=== PATIENT | female | born 2000 | race Caucasian/White ===

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

== ENCOUNTER 2018-02-09 17:06 | Emergency (ER) | payer OTHER ==
[2018-02-09 18:50] VITALS: BP 0/0
== END 2018-02-09 18:51 | disposition left against medical advice (07) ==
LOC: ED 17:06
DX: T14.8XXA Other injury of unspecified body region, initial encounter (principal); W54.0XXA Bitten by dog, initial encounter; Z53.21 Procedure and treatment not carried out due to patient leaving prior to being seen by health care provider

== ENCOUNTER 2018-02-25 13:30 | Emergency (ER) | payer OTHER ==
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
--- NOTE | 2018-02-25 15:54 | RAD ---
INDICATION: Left ankle pain COMPARISON: None. TECHNIQUE: 3 views of the left ankle were obtained. FINDINGS: The well corticated bones exhibit normal alignment. Joint spaces appear maintained. No fracture is seen. IMPRESSION: Normal ankle radiograph. If the patient's symptoms persist, follow-up imaging is recommended.
[2018-02-25 17:24] VITALS: BP 118/76
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
== END 2018-02-25 17:25 | disposition home or self-care (01) ==
LOC: ED 13:30
DX: S96.912A Strain of unspecified muscle and tendon at ankle and foot level, left foot, initial encounter (principal); S16.1XXA Strain of muscle, fascia and tendon at neck level, initial encounter; V49.49XA Driver injured in collision with other motor vehicles in traffic accident, initial encounter; Y92.9 Unspecified place or not applicable; F32.9 Major depressive disorder, single episode, unspecified; F41.9 Anxiety disorder, unspecified; F17.210 Nicotine dependence, cigarettes, uncomplicated; F20.9 Schizophrenia, unspecified; F43.10 Post-traumatic stress disorder, unspecified; R10.2 Pelvic and perineal pain
CPT/HCPCS: 72020; 72050; 72170; 99283

== ENCOUNTER 2019-02-24 12:55 | Emergency (ER) | payer OTHER ==
[2019-02-24 13:24] VITALS: BP 122/75
[2019-02-24] MEDS ORDERED: Ondansetron ODT TAB* 4 MG PO ONE (14:02)
--- NOTE | 2019-02-24 14:08 | UC ---
Nausea/Vomiting/Diarrhea HPI - HPI Summary HPI Summary: 18-year-old female comes in with a chief complaint of nausea vomiting. Started last night. She's also had a sore throat. She's had chills. No shortness of breath. She did have an episode of diarrhea during the night but nothing this morning. Denies any abdominal pain. She is on her menses now she denies any concern of an STI. No burning with urination. No flank pain. - History of Current Complaint Chief Complaint: UCHeadache Stated Complaint: DELGADO,NAUSEA,CHILLS Time Seen by Provider: 02/24/19 13:54 Hx Last Menstrual Period: 02/23/19 Pain Intensity: 0 - Allergies/Home Medications Allergies/Adverse Reactions: Allergies Allergy/AdvReac Type Severity Reaction Status Date / Time bee venom protein (honey bee) Allergy Hives Verified 02/24/19 13:23 PMH/Surg Hx/FS Hx/Imm Hx Previously Healthy: Yes - REPORTS HX OF ANEMIA Other History Of: Negative For: Anticoagulant Therapy - Surgical History Surgical History: None - Family History Known Family History: Positive: None, Other - depression Negative: Cardiac Disease, Hypertension, Diabetes - Social History Alcohol Use: Occasionally Substance Use Type: Marijuana Substance Use Comment - Amount & Last Used: frequent Smoking Status (MU): Current Some Day Smoker Type: eCigarettes Amount Used/How Often: once every couple months Have You Smoked in the Last Year: Yes - patient smoked approximately half a pack of cigarette within 30 days Household Exposure Type: Cigarettes - Immunization History Most Recent Influenza Vaccination: unk Most Recent Pneumonia Vaccination: none Review of Systems All Other Systems Reviewed And Are Negative: Yes Constitutional: Positive: Fatigue Skin: Positive: Negative Eyes: Positive: Negative ENT: Positive: Sore Throat Respiratory: Positive: Negative Cardiovascular: Positive: Negative Gastrointestinal: Positive: Vomiting, Diarrhea, Nausea Genitourinary: Positive: Negative Motor: Positive: Negative Neurovascular: Positive: Negative Musculoskeletal: Positive: Negative Neurological: Positive: Headache - LAST PM HAD DELGADO;NO DELGADO NOW Psychological: Positive: Negative Is Patient Immunocompromised?: No Physical Exam Triage Information Reviewed: Yes Appearance: Well-Appearing, No Pain Distress, Well-Nourished Vital Signs: Initial Vital Signs Temp 98.1 F 02/24/19 13:15 Pulse 82 02/24/19 13:15 Resp 18 02/24/19 13:15 BP 122/75 02/24/19 13:15 Pulse Ox 99 02/24/19 13:15 Vital Signs Reviewed: Yes Eye Exam: Normal Eyes: Positive: Conjunctiva Clear ENT: Positive: Tonsillar swelling - 2+ B/L. NO PERITONSILLAR ABSCESS Neck: Positive: Supple Respiratory: Positive: Lungs clear, Normal breath sounds, No respiratory distress Cardiovascular: Positive: RRR Abdominal Exam: Normal Abdomen Description: Positive: Soft. Negative: CVA Tenderness (R), CVA Tenderness (L) Musculoskeletal: Positive: Strength Intact, ROM Intact Neurological Exam: Normal Neurological: Positive: Alert, Muscle Tone Normal Psychological: Positive: Age Appropriate Behavior Skin Exam: Normal Naus/Vom/Diarrhea Course/Dx - Course Course Of Treatment: STREP NEGATIVE. NO ABDOMINAL PAIN. NO FEVER. WILL TREAT SYMPTOMS; REEVAL IF WORSE. - Differential Dx/Diagnosis Provider Diagnosis: Nausea vomiting and diarrhea, Sore throat Condition At Discharge: Stable Discharge - Sign-Out/Discharge Documenting (check all that apply): Patient Departure All imaging exams completed and their final reports reviewed: No Studies - Discharge Plan Condition: Stable Disposition: HOME Prescriptions: Ondansetron ODT TAB* [Zofran 4 MG Odt TAB*] 4 mg PO Q6H PRN #10 tab.odt PRN Reason: Nausea Patient Education Materials: Acute Nausea and Vomiting (ED), Acute Diarrhea (ED ) Forms: *Work Release Referrals: [facility] [place] [facility] [Outside] Additional Instructions: FOLLOW UP WITH YOUR DOCTOR IF NOT COMPLETELY IMPROVED. GET RECHECKED SOONER IF YOUR CONDITION WORSENS OR ANY QUESTIONS OR CONCERNS. - Billing Disposition and Condition Condition: STABLE Disposition: Home
== END 2019-02-24 14:38 | disposition home or self-care (01) ==
LOC: UCCORT 12:55
DX: R11.2 Nausea with vomiting, unspecified (principal); R19.7 Diarrhea, unspecified; J02.9 Acute pharyngitis, unspecified; F17.210 Nicotine dependence, cigarettes, uncomplicated
CPT/HCPCS: 87651; 99212; A9270-GY; G0463

== ENCOUNTER 2020-08-18 17:54 | Inpatient (IN) ==
[2020-08-18] MEDS ORDERED: Buffered Lidocaine 1% SYRIN 1 ml INTRADERM ONE (19:16)
[2020-08-18] MEDS ORDERED: Dinoprostone 10 MG VAG.SUPP VAGINAL ONE (19:16)
[2020-08-18] MEDS ORDERED: Lactated Ringers 1000 ml BAG 1,000 ML IV ONE (19:16)
[2020-08-18] MEDS ORDERED: hydrOXYzine IM 50 MG/ML VIAL IM ONE (19:33)
[2020-08-18 20:01] LABS: Urine Benzodiazepine Screen None Detected (None Detect); Urine Cannabinoids Screen None Detected (None Detect); Urine Opiates Screen None Detected (None Detect)
[2020-08-18] MEDS ORDERED: Morphine 10 MG/ML VIAL (1 ml) IM ONE (23:21)
[2020-08-18] MEDS ORDERED: Promethazine INJ(RESTRICTED) 25 MG/ML 1 ml VIAL IM PRN (23:21)
[2020-08-19] MEDS: Lactated Ringers 1000 ml BAG 1,000 ML IV SCH ×2 (05:25→06:38)
[2020-08-19 05:55] LABS: ABS Lymphocytes 1.2 10^3/ul (1.0-4.8); ABS Monocytes 0.7 10^3/ul (0-0.8); ABS Neutrophils 12.6 10^3/ul (1.5-7.7); Eosinophil % 0.1 %; Hematocrit 32 % (35-47); Hemoglobin 10.6 g/dL (12.0-16.0); Lymphocyte % 8.5 %; Mean Corpuscular HGB Conc 33 g/dL (31-36); Mean Corpuscular Hemoglobin 27 pg (27-31); Mean Corpuscular Volume 81 fL (80-97); Mean Platelet Volume 8.2 fL (7.4-10.4); Platelet Count 281 10^3/uL (150-450); Red Blood Count 3.96 10^6 /uL (3.70-4.87); Red Cell Distribution Width 21 % (10-15); White Blood Count 14.5 10^3/uL (3.5-10.8)
[2020-08-19] MEDS ORDERED: OBEPIDURAL 250 ML EPIDURAL ONE (07:05)
[2020-08-19] MEDS ORDERED: Bupivacaine 0.25% SDV PF 10 ML VIAL INJ ONE (07:19)
[2020-08-19] MEDS ORDERED: Sodium Citrate/Citric Acid LIQ 15 ML UDC PO PRN (07:54)
[2020-08-19] MEDS ORDERED: Lactated Ringers 1000 ml BAG 1,000 ML IV ONE (07:54)
[2020-08-19] MEDS ORDERED: Phenylephrine 40 mcg/mL 10mL (400mcg) SYRINGE IV PUSH PRN ×2 (07:54)
[2020-08-19] MEDS ORDERED: Lactated Ringers 1000 ml BAG 1,000 ML IV SCH ×2 (08:00→12:00)
[2020-08-19] MEDS ORDERED: OBEPIDURAL 250 ML EPIDURAL SCH (08:00)
[2020-08-19] MEDS ORDERED: ceFOXitin 2 GM IVPREMIX 2 GM/50 ML BAG IVPB ONE (08:50)
[2020-08-19] MEDS ORDERED: ceFOXitin 2 GM IVPREMIX 2 GM/50 ML BAG ONE (08:51)
[2020-08-19] MEDS ORDERED: Ondansetron 4 mg VIAL 2 MG/ML 2 ml VIAL ONE (09:12)
[2020-08-19] MEDS ORDERED: Oxytocin 10 UNITS/ML 1 ML VIAL ONE (09:12)
[2020-08-19] MEDS ORDERED: fentaNYL 100 mcg/2 ml 50 MCG/ML VIAL ONE (09:13)
[2020-08-19] MEDS ORDERED: Morphine PF AMP (0.5MG/ML) 5 MG/10 ML AMP ONE (09:13)
[2020-08-19] MEDS ORDERED: Chloroprocaine 3% 20 ml VIAL ONE (09:16)
[2020-08-19] MEDS ORDERED: Naloxone 0.4 mg VIAL 0.4 mg/ml 1 ml VIAL IV PRN ×2 (10:31→10:33)
[2020-08-19] MEDS ORDERED: oxyCODONE/Acetamin 5/325 mg TAB PO PRN ×2 (10:33)
[2020-08-19] MEDS ORDERED: Ondansetron 4 mg VIAL 2 MG/ML 2 ml VIAL IV PRN (10:33)
[2020-08-19] MEDS ORDERED: diPHENhydraMINE IV 50 MG/ML 1 ml VIAL (BENADRYL) IV PRN (10:33)
[2020-08-19] MEDS: fentaNYL 100 mcg/2 ml 50 MCG/ML VIAL IV PRN ×2 (10:48→11:04)
[2020-08-19] MEDS ORDERED: Dibucaine 1% OINT 28.35 GM TUBE PR PRN (11:50)
[2020-08-19] MEDS ORDERED: Witch Hazel PAD JAR TOPICAL PRN (11:50)
[2020-08-19] MEDS ORDERED: Glycerin ADULT 2.4 gm SUPP PR PRN (11:50)
[2020-08-19] MEDS ORDERED: Oxytocin in LR 20 UNITS/1,000 ML BAG IVPB SCH (12:00)
[2020-08-20 09:29] LABS: ABS Basophils 0.1 10^3/ul (0-0.2); ABS Eosinophils 0.1 10^3/ul (0-0.6); ABS Lymphocytes 1.8 10^3/ul (1.0-4.8); ABS Monocytes 0.7 10^3/ul (0-0.8); ABS Neutrophils 8.5 10^3/ul (1.5-7.7); Eosinophil % 0.6 %; Hematocrit 23 % (35-47); Hemoglobin 7.4 g/dL (12.0-16.0); Lymphocyte % 16.3 %; Mean Corpuscular HGB Conc 33 g/dL (31-36); Mean Corpuscular Hemoglobin 28 pg (27-31); Mean Corpuscular Volume 84 fL (80-97); Mean Platelet Volume 8.3 fL (7.4-10.4); Platelet Count 212 10^3/uL (150-450); Red Blood Count 2.69 10^6 /uL (3.70-4.87); Red Cell Distribution Width 22 % (10-15); White Blood Count 11.2 10^3/uL (3.5-10.8)
[2020-08-21 07:26] VITALS: BP 129/70
[2020-08-21 08:05] LABS: Hematocrit 22 % (35-47); Hemoglobin 7.3 g/dL (12.0-16.0); Mean Corpuscular HGB Conc 33 g/dL (31-36); Mean Corpuscular Hemoglobin 27 pg (27-31); Mean Corpuscular Volume 83 fL (80-97); Platelet Count 192 10^3/uL (150-450); Red Blood Count 2.67 10^6 /uL (3.70-4.87); Red Cell Distribution Width 22 % (10-15); White Blood Count 10.2 10^3/uL (3.5-10.8)
== END 2020-08-21 14:01 | disposition home or self-care (01) | DRG 540 ==
LOC: MCHOBOUT 17:54 → MCHOB 19:16
PROVIDERS: ADMIT Midwife; ATTEND Midwife